=== PATIENT | female | born 1995 | race African-American/Black ===

== ENCOUNTER 2020-02-11 16:31 | Emergency (ER) | payer SELFPAY ==
[~2020-02-11] VITALS: Ht 167.6 cm; Wt 71.0 kg
[2020-02-11 16:31] VITALS: BP 113/88
[2020-02-11] MEDS ORDERED: ACETAMINOPHEN 325 MG TABLET PO ONE (17:05)
--- NOTE | 2020-02-11 17:07 | PHYS DOC ---
Past History Past Medical History: Asthma (MANUEL ESPANA ) Past Surgical History: Oophorectomy, Other (MANUEL ESPANA ) Smoking: Cigarettes Alcohol Use: Occasionally Drug Use: Marijuana (MANUEL ESPANA ) General Adult EDM: Chief Complaint: ABDOMINAL PAIN IN HPI: HPI: 24-year-old female with FDLMP early November, who presents for evaluation of suprapubic and pelvic discomfort, intermittent over the last 2 weeks or so. No vaginal bleeding or discharge. No dysuria or hematuria. No nausea or vomiting. Prior right-sided oophorectomy for a reportedly large cyst. Has not yet established care. (MANUEL ESPANA ) Review of Systems: Review of Systems: General: No fevers, chills. Eyes: No blurred vision, diplopia. ENT: No nasal congestion, sore throat. CV: No chest pain, edema. Resp: No shortness of breath, cough. GI: No nausea, vomiting. Reports pelvic pain. : No dysuria, hematuria. Neuro: No headache, dizziness, weakness. MSK: No myalgia, arthralgia, back pain. Skin: No acute rash, lesion. (FARHAD) Heart Score: Risk Factors: Risk Factors: DM, Current or recent (<one month) smoker, HTN, HLP, family history of CAD, obesity. Risk Scores: Score 0 - 3: 2.5% MACE over next 6 weeks - Discharge Home Score 4 - 6: 20.3% MACE over next 6 weeks - Admit for Clinical Observation Score 7 - 10: 72.7% MACE over next 6 weeks - Early Invasive Strategies (MANUEL ESPANA ) Current Medications: Current Meds: Current Medications Medications (Trade) Dose Ordered Sig/Frandy Start Time Stop Time Status Last Admin Dose Admin Acetaminophen (Tylenol) 650 mg 1X ONCE 02/11/20 17:00 02/11/20 17:01 UNV (FARHAD) Allergies: Allergies: Allergies Coded Allergies Type Severity Reaction Last Updated Verified No Known Drug Allergies 12/07/13 No (MANUEL ESPANA H DO) Physical Exam: PE: Gen: NAD. Head: NC/AT Eyes: No scleral icterus. No conjunctival injection. ENT: MMM. Posterior OP clear. Neck: Supple. NT. CV: RRR. Peripheral pulses intact. Resp: CTAB. Abd: Soft. NT. ND. No flank tenderness. Gravid abdomen. MSK: No peripheral cyanosis. No edema. Neuro: Awake and alert. Skin: Warm. Dry. Psych: Appropriate mood & affect. (LE,MANUEL H DO) Current Patient Data: Labs: Laboratory Tests Test 02/11/20 17:28 White Blood Count 6.9 x10^3/uL Red Blood Count 3.94 x10^6/uL Hemoglobin 12.6 g/dL Hematocrit 37.3 % Mean Corpuscular Volume 95 fL Mean Corpuscular Hemoglobin 32 pg Mean Corpuscular Hemoglobin Concent 34 g/dL Red Cell Distribution Width 14.8 % Platelet Count 174 x10^3/uL Neutrophils (%) (Auto) 54 % Lymphocytes (%) (Auto) 33 % Monocytes (%) (Auto) 10 % Eosinophils (%) (Auto) 3 % Basophils (%) (Auto) 1 % Neutrophils # (Auto) 3.8 x10^3uL Lymphocytes # (Auto) 2.3 x10^3/uL Monocytes # (Auto) 0.7 x10^3/uL Eosinophils # (Auto) 0.2 x10^3/uL Basophils # (Auto) 0.0 x10^3/uL Urine Collection Type Unknown Urine Color Yellow Urine Clarity Hazy Urine pH 7.0 Urine Specific Stevenson 1.020 Urine Protein Neg Urine Glucose (UA) Neg mg/dL Urine Ketones (Stick) Trace mg/dL Urine Blood Neg Urine Nitrite Neg Urine Bilirubin Neg Urine Urobilinogen Dipstick 0.2 mg/dL Urine Leukocyte Esterase Neg Urine RBC 1-2 /HPF Urine WBC 1-4 /HPF Urine Squamous Epithelial Cells Many /LPF Urine Amorphous Sediment Present /HPF Urine Bacteria Few /HPF Maternal Serum HCG Beta Subunit 476298 mIU/mL Sodium Level 135 mmol/L Potassium Level 3.5 mmol/L Chloride Level 101 mmol/L Carbon Dioxide Level 26 mmol/L Anion Gap 8 Blood Urea Nitrogen 14 mg/dL Creatinine 0.9 mg/dL Estimated GFR (Cockcroft-Gault) 93.9 BUN/Creatinine Ratio 16 Glucose Level 83 mg/dL Calcium Level 8.9 mg/dL Magnesium Level 1.9 mg/dL Total Bilirubin < 0.1 mg/dL Aspartate Amino Transf (AST/SGOT) 13 U/L Alanine Aminotransferase (ALT/SGPT) 15 U/L Alkaline Phosphatase 47 U/L Total Protein 7.2 g/dL Albumin 3.0 g/dL Albumin/Globulin Ratio 0.7 Lipase 103 U/L Current Medications Medications (Trade) Dose Ordered Sig/Frandy Route PRN Reason Start Time Stop Time Status Last Admin Dose Admin Acetaminophen (Tylenol) 650 mg 1X ONCE PO 02/11/20 17:05 02/11/20 17:06 DC 02/11/20 17:05 (BRADFORD TSE MD) EKG: EKG: [] (MANUEL ESPANA DO) Radiology/Procedures: Radiology/Procedures: [] (MANUEL ESPANA DO) Radiology/Procedures: [place] [address] IMAGING REPORT Signed PATIENT: OLEG MARIEE ACCOUNT: [id number] : 1995 LOCATION: ER AGE: 24 SEX: F EXAM STATUS: REG ER ORD. PHYSICIAN: MANUEL ESPANA DO REASON: pelvic pain, +home , FDLMP early November PROCEDURE: OB <14 WKS Exam: Ultrasound OB less than 14 weeks Indication: Pelvic pain Technique: Real-time grayscale and color Doppler images of the pelvis were obtained by the department supervisor gas meter repair. Comparisons: None FINDINGS: Uterus measures 10 x 7 x 6 cm. Within the endometrium there is a gestational sac with yolk sac and pole which measures 1.7 cm corresponding to 8 weeks 1 day gestation. heart rate measured at 171 bpm Right ovary measures 2.5 x 1.3 x 1.5 cm. Left ovary is not visualized, obscured by overlying bowel gas. No free fluid. IMPRESSION: 1. Single live uterine gestation of 8 weeks 1 day gestation by current ultrasound. Correlate with LMP. 2. Dedicated survey is recommended at 18-20 weeks gestation. Electronically signed by: Lavern Nieves MD (02/11/2020 6:33 PM) [id number] DICTATED AND SIGNED BY: LAVERN NIEVES MD DATE: 02/11/20 1833 CC: MANUEL ESPANA DO; PCP,NO ~ (BRADFORD TSE MD) Course & Med Decision Making: Course & Med Decision Making Pertinent Labs and Imaging studies reviewed. (See chart for details) In summary, 24F with FDLMP early Feb, p/w pelvic/midline lower abd pain. No other GI/ Sx. NO VAGINAL BLEEDING OR DISCHARGE. No PNC thus far. Benign exam. Basic labs, HCG quant and TVUS ordered. Patient informed that US is not currently in-house but will be able to perform the study tonight, and she is comfortable waiting. Signed out to Dr. Tse pending remainder of labs including quant hcg and TVUS. (MANUEL ESPANA DO) Course & Med Decision Making Addendum by Dr. Bradford Tse at 1846: I received care of patient from Dr. Espana at 1800. Patient's lab work was reviewed. Quantitative hCG within expected range. The patient's ultrasound imaging shows a live intrauterine at 8 weeks 1 day. Patient is in no acute distress at this time. The patient will be referred to Dr. Clarke for care. Advised follow-up in 1 week for reevaluation. Recommended return to the emergency department for any worsening symptoms. Patient voiced understanding and agreement with treatment plan. (BRADFORD TSE MD) Dragon Disclaimer: Dragon Disclaimer: This electronic medical record was generated, in whole or in part, using a voice recognition dictation system. (MANUEL ESPANA DO) Departure Departure: Impression: Primary Impression: Pelvic pain during Additional Impression: Intrauterine Disposition: HOME, SELF-CARE Condition: STABLE Referrals: PCP,NO (PCP) Hitesh Clarke Jr, MD Patient Instructions: Abdominal Pain During Additional Instructions: Follow-up with Dr. Clarke in 1 week for reevaluation. Return to the emergency department for any worsening symptoms. MANUEL ESPANA DO Feb 11, 2020 17:07 BRADFORD TSE MD Feb 11, 2020 18:52
[2020-02-11 17:40] LABS: BASO % 1 % (0-3); EOS # 0.2 x10^3/uL (0.0-0.7); EOS % 3 % (0-3); HEMATOCRIT 37.3 % (36.0-47.0); HEMOGLOBIN 12.6 g/dL (12.0-15.5); LYMPH # 2.3 x10^3/uL (1.0-4.8); LYMPH % 33 % (24-48); MEAN CORPUSCULAR HEMOGLOBIN 32 pg (25-35); MEAN CORPUSCULAR HGB CONC 34 g/dL (31-37); MEAN CORPUSCULAR VOLUME 95 fL (79-100); MONO # 0.7 x10^3/uL (0.0-1.1); MONO % 10 % (0-9); NEUT # 3.8 x10^3uL (1.8-7.7); NEUT % 54 % (31-73); PLATELET COUNT 174 x10^3/uL (140-400); RED BLOOD COUNT 3.94 x10^6/uL (3.50-5.40); RED CELL DISTRIBUTION WIDTH 14.8 % (11.5-14.5); WHITE BLOOD COUNT 6.9 x10^3/uL (4.0-11.0)
[2020-02-11 17:46] LABS: ANION GAP 8 (6-14); BLOOD UREA NITROGEN 14 mg/dL (7-20); BUN/CREATININE RATIO 16 (6-20); CALCIUM 8.9 mg/dL (8.5-10.1); CARBON DIOXIDE 26 mmol/L (21-32); CHLORIDE 101 mmol/L (98-107); CREATININE 0.9 mg/dL (0.6-1.0); GFR 93.9; GLUCOSE 83 mg/dL (70-99); POTASSIUM 3.5 mmol/L (3.5-5.1); SODIUM 135 mmol/L (136-145)
[2020-02-11 17:48] LABS: AMORPHOUS SEDIMENT,UR PRESENT /HPF; BACTERIA,URINE FEW /HPF (0-FEW); BILIRUBIN,URINE NEG (NEG); CLARITY,URINE HAZY; COLOR,URINE YELLOW; GLUCOSE,URINE NEG (NEG); NITRITE,URINE NEG (NEG); SQUAMOUS EPITHELIAL CELL,UR MANY /LPF; UROBILINOGEN,URINE 0.2 mg/dL (0.2 mg/dL)
[2020-02-11 17:52] LABS: ALBUMIN/GLOBULIN RATIO 0.7 (1.0-1.7); ALK PHOS 47 U/L (46-116); ALT (SGPT) 15 U/L (14-59); AST (SGOT) 13 U/L (15-37); LIPASE 103 U/L (73-393); MAGNESIUM 1.9 mg/dL (1.8-2.4); TOTAL PROTEIN 7.2 g/dL (6.4-8.2)
[2020-02-11 18:07] LABS: TOTAL BILIRUBIN < 0.1 mg/dL (0.2-1.0)
--- NOTE | 2020-02-11 18:37 | RAD ---
Exam: Ultrasound OB less than 14 weeks Indication: Pelvic pain Technique: Real-time grayscale and color Doppler images of the pelvis were obtained by the department geology technician. Comparisons: None FINDINGS: Uterus measures 10 x 7 x 6 cm. Within the endometrium there is a gestational sac with yolk sac and pole which measures 1.7 cm corresponding to 8 weeks 1 day gestation. heart rate measured at 171 bpm Right ovary measures 2.5 x 1.3 x 1.5 cm. Left ovary is not visualized, obscured by overlying bowel gas. No free fluid. IMPRESSION: 1. Single live uterine gestation of 8 weeks 1 day gestation by current ultrasound. Correlate with LMP. 2. Dedicated survey is recommended at 18-20 weeks gestation. Electronically signed by: Lavern Mccray MD (02/11/2020 6:33 PM) [id number]
== END 2020-02-11 18:42 | disposition left against medical advice (07) ==
LOC: ER 16:31
DX: O26.891 Other specified pregnancy related conditions, first trimester (principal); R10.2 Pelvic and perineal pain; O99.511 Diseases of the respiratory system complicating pregnancy, first trimester; J45.909 Unspecified asthma, uncomplicated; O99.331 Smoking (tobacco) complicating pregnancy, first trimester; Z3A.08 8 weeks gestation of pregnancy
CPT/HCPCS: 36415; 76801; 80053; 81001; 83690; 83735; 84702; 85025; 99284-25

== ENCOUNTER 2020-07-20 10:08 | Emergency (ER) | payer MEDICAID ==
[~2020-07-20] VITALS: Ht 167.6 cm; Wt 77.3 kg
[2020-07-20 10:25] VITALS: BP 106/72
[2020-07-20 10:38] LABS: BASO % 0 % (0-3); EOS # 0.1 x10^3/uL (0.0-0.7); EOS % 1 % (0-3); HEMATOCRIT 31.4 % (36.0-47.0); HEMOGLOBIN 10.4 g/dL (12.0-15.5); LYMPH # 1.7 x10^3/uL (1.0-4.8); LYMPH % 36 % (24-48); MEAN CORPUSCULAR HEMOGLOBIN 30 pg (25-35); MEAN CORPUSCULAR HGB CONC 33 g/dL (31-37); MEAN CORPUSCULAR VOLUME 91 fL (79-100); MONO # 0.5 x10^3/uL (0.0-1.1); MONO % 10 % (0-9); NEUT # 2.5 x10^3uL (1.8-7.7); NEUT % 52 % (31-73); PLATELET COUNT 158 x10^3/uL (140-400); RED BLOOD COUNT 3.46 x10^6/uL (3.50-5.40); RED CELL DISTRIBUTION WIDTH 13.6 % (11.5-14.5); WHITE BLOOD COUNT 4.8 x10^3/uL (4.0-11.0)
[2020-07-20 10:47] LABS: CALCIUM 8.5 mg/dL (8.5-10.1); CREATININE 0.7 mg/dL (0.6-1.0); GFR 124.4; POTASSIUM 3.3 mmol/L (3.5-5.1)
[2020-07-20 11:03] LABS: BILIRUBIN,URINE NEG (NEG); CLARITY,URINE CLEAR; COLOR,URINE YELLOW; GLUCOSE,URINE NEG (NEG); NITRITE,URINE NEG (NEG)
[2020-07-20 11:04] LABS: BACTERIA,URINE MOD /HPF (0-FEW); SQUAMOUS EPITHELIAL CELL,UR MANY /LPF
--- NOTE | 2020-07-20 11:45 | RAD ---
OB LIMITED History: Abdominal and pelvic pain and cramping, Comparison: February 11, 2020 Findings: Multiple transabdominal sonographic images of the uterus are submitted. There is single intrauterine fetus in cephalic presentation. There is demonstrable cardiac activity 137 bpm. Amniotic fluid volume is subjectively within normal limits, also estimated ISAÍAS within normal limits about 13 cm. Cervix measured 4.4 cm in length. Maternal ovaries are not seen, no demonstrable abnormality of the maternal adnexal regions on either side. There is anterior placenta. Biometry data are as follows: Biparietal diameter 7.94 cm corresponds with 31 weeks 6 days, 37th percentile Head circumference 29.76 cm corresponds with 33 weeks 0 days, 37th percentile Abdominal circumference 26.83 cm corresponds with 31 weeks 0 days, 19 percentile Femur length 5.85 cm corresponds with 30 weeks 4 days, 8th percentile HC/AC ratio1.11 within normal limits Adjusted ultrasound age 31 weeks 4 days corresponds with 09/17/2020 LMP age 32 weeks 0 days corresponds with 09/14/2020 Estimated weight 1697 grams+/- 251grams Impression: 1. There is single viable intrauterine fetus in cephalic presentation. Adjusted ultrasound age is 31 weeks 4 days with estimated delivery date by ultrasound 09/17/2020 based on today's exam. Electronically signed by: Demetrio Jennings MD (07/20/2020 11:42 AM) [id number]
--- NOTE | 2020-07-20 12:09 | PHYS DOC ---
Past History Past Medical History: No Pertinent History Past Surgical History: Oophorectomy Smoking: Cigarettes Alcohol Use: None Drug Use: Marijuana General Adult EDM: Chief Complaint: ABDOMINAL PAIN IN HPI: HPI: 25 yo female @ 32 wks, presents to the ED with complaints of lower abdominal cramping that started earlier this morning and lasted for a few hours, worsened when lying flat. States she was concerned she was having early contractions. Currently has no abdominal cramps at this time. Follows with Dr. Watson, MILKING WORKER at [facility]. No complications with this . Review of Systems: Review of Systems: Constitutional: Denies fever or chills Eyes: Denies change in visual acuity HENT: Denies nasal congestion or sore throat Respiratory: Denies cough or shortness of breath Cardiovascular: Denies chest pain or edema GI: Denies vaginal bleeding or abnormal itching odor or discharge, nausea, vomiting, bloody stools or diarrhea : Denies dysuria, hematuria Musculoskeletal: Denies back pain or joint pain Integument: Denies rash or bruising Neurologic: Denies headache, focal weakness or sensory changes Endocrine: Denies polyuria or polydipsia Lymphatic: Denies swollen glands Psychiatric: Denies depression or anxiety Heart Score: Risk Factors: Risk Factors: DM, Current or recent (<one month) smoker, HTN, HLP, family history of CAD, obesity. Risk Scores: Score 0 - 3: 2.5% MACE over next 6 weeks - Discharge Home Score 4 - 6: 20.3% MACE over next 6 weeks - Admit for Clinical Observation Score 7 - 10: 72.7% MACE over next 6 weeks - Early Invasive Strategies Allergies: Allergies: Allergies Coded Allergies Type Severity Reaction Last Updated Verified No Known Drug Allergies 12/07/13 No Physical Exam: PE: Constitutional: Well developed, well nourished, no acute distress, non-toxic appearance. [] HENT: Normocephalic, atraumatic, Eyes: EOMI, conjunctiva normal, no discharge. [] Neck: Normal range of motion, supple, Cardiovascular:Heart rate regular rhythm, no murmur [] Lungs & Thorax: Bilateral breath sounds clear to auscultation [] Abdomen: Bowel sounds normal, soft, gravid well above umbilicus, no tenderness, no masses, no pulsatile masses. [] Skin: Warm, dry, no erythema, no rash. [] Back: No tenderness, no CVA tenderness. [] Extremities: No tenderness, no cyanosis, no clubbing, ROM intact, no edema. [] Neurologic: Alert and oriented X 3, normal motor function, normal sensory function, no focal deficits noted. [] Psychologic: Affect normal, judgement normal, mood normal. [] Current Patient Data: Labs: Laboratory Tests Test 07/20/20 10:20 07/20/20 10:23 White Blood Count 4.8 x10^3/uL (4.0-11.0) Red Blood Count 3.46 x10^6/uL (3.50-5.40) L Hemoglobin 10.4 g/dL (12.0-15.5) L Hematocrit 31.4 % (36.0-47.0) L Mean Corpuscular Volume 91 fL (79-100) Mean Corpuscular Hemoglobin 30 pg (25-35) Mean Corpuscular Hemoglobin Concent 33 g/dL (31-37) Red Cell Distribution Width 13.6 % (11.5-14.5) Platelet Count 158 x10^3/uL (140-400) Neutrophils (%) (Auto) 52 % (31-73) Lymphocytes (%) (Auto) 36 % (24-48) Monocytes (%) (Auto) 10 % (0-9) H Eosinophils (%) (Auto) 1 % (0-3) Basophils (%) (Auto) 0 % (0-3) Neutrophils # (Auto) 2.5 x10^3uL (1.8-7.7) Lymphocytes # (Auto) 1.7 x10^3/uL (1.0-4.8) Monocytes # (Auto) 0.5 x10^3/uL (0.0-1.1) Eosinophils # (Auto) 0.1 x10^3/uL (0.0-0.7) Basophils # (Auto) 0.0 x10^3/uL (0.0-0.2) Sodium Level 136 mmol/L (136-145) Potassium Level 3.3 mmol/L (3.5-5.1) L Chloride Level 104 mmol/L (98-107) Carbon Dioxide Level 24 mmol/L (21-32) Anion Gap 8 (6-14) Blood Urea Nitrogen 6 mg/dL (7-20) L Creatinine 0.7 mg/dL (0.6-1.0) Estimated GFR (Cockcroft-Gault) 124.4 Glucose Level 78 mg/dL (70-99) Calcium Level 8.5 mg/dL (8.5-10.1) Urine Collection Type Unknown Urine Color Yellow Urine Clarity Clear Urine pH 7.0 Urine Specific [place] 1.020 Urine Protein Trace (NEG-TRACE) Urine Glucose (UA) Neg mg/dL (NEG) Urine Ketones (Stick) Neg mg/dL (NEG) Urine Blood Neg (NEG) Urine Nitrite Neg (NEG) Urine Bilirubin Neg (NEG) Urine Urobilinogen Dipstick 1.0 mg/dL (0.2 mg/dL) Urine Leukocyte Esterase Neg (NEG) Urine RBC 3-5 /HPF (0-2) Urine WBC 5-10 /HPF (0-4) Urine Squamous Epithelial Cells Many /LPF Urine Bacteria Mod /HPF (0-FEW) Urine Mucus Mod /LPF Vital Signs: Vital Signs Date Time Temp Pulse Resp B/P (MAP) Pulse Ox O2 Delivery O2 Flow Rate FiO2 07/20/20 10:25 98.0 86 18 106/72 (83) 100 EKG: EKG: [] Radiology/Procedures: Radiology/Procedures: IMAGING REPORT Signed PATIENT: OLEG MARIEE ACCOUNT: [id number] : 1995 LOCATION: ER AGE: 25 SEX: F EXAM STATUS: REG ER ORD. PHYSICIAN: NADIA ESCALANTE DO REASON: ABD AND PELVIC PAIN AND CRAMPING, 31 WEEKS PROCEDURE: OB LIMITED OB LIMITED History: Abdominal and pelvic pain and cramping, Comparison: February 11, 2020 Findings: Multiple transabdominal sonographic images of the uterus are submitted. There is single intrauterine fetus in cephalic presentation. There is demonstrable cardiac activity 137 bpm. Amniotic fluid volume is subjectively within normal limits, also estimated ISAÍAS within normal limits about 13 cm. Cervix measured 4.4 cm in length. Maternal ovaries are not seen, no demonstrable abnormality of the maternal adnexal regions on either side. There is anterior placenta. Biometry data are as follows: Biparietal diameter 7.94 cm corresponds with 31 weeks 6 days, 37th percentile Head circumference 29.76 cm corresponds with 33 weeks 0 days, 37th percentile Abdominal circumference 26.83 cm corresponds with 31 weeks 0 days, 19 percentile Femur length 5.85 cm corresponds with 30 weeks 4 days, 8th percentile HC/AC ratio1.11 within normal limits Adjusted ultrasound age 31 weeks 4 days corresponds with 09/17/2020 LMP age 32 weeks 0 days corresponds with 09/14/2020 Estimated weight 1697 grams+/- 251grams Impression: 1. There is single viable intrauterine fetus in cephalic presentation. Adjusted ultrasound age is 31 weeks 4 days with estimated delivery date by ultrasound 09/17/2020 based on today's exam. Electronically signed by: Becky Jennings MD (07/20/2020 11:42 AM) [id number] DICTATED AND SIGNED BY: BECKY JENNINGS MD DATE: 07/20/20 1142 CC: PCP,NO; NADIA ESCALANTE DO ~ Course & Med Decision Making: Course & Med Decision Making Pertinent Labs and Imaging studies reviewed. (See chart for details) Concern for abdominal cramping in that has resolved prior to ED arrival. Abdominal ultrasound showed ntrauterine , fhr 137. Labs with normocytic anemia, worsened by January, no active blood loss. D/w Dr. Lazaro - reviewed labs/imaging, requests to not treat for uti but to send a urine culture and treat if positive. To have her followup as usual, suspect this is round ligament pain. Strict ed return precautions for recurrent abdominal pain or back pain, vaginal bleeding or abnormal vaginal discharge. Encouraged urgent outpatient follow-up with PMD and MILKING WORKER. Life-threatening processes were considered but are low suspicion at this time, given history and physical exam. Pt was educated on all prescription medications and adverse effects. All patient's questions were answered and pt was stable at time of discharge. Differential includes aortic dissection, aortic aneurysm, acute coronary syndrome, surgical abdomen (appendicitis, cholecystitis, ischemic bowel, strangulated hernia, etc), bowel obstruction or volvulus, bladder outlet obstruction, gastrointestinal bleeding, inflammatory bowel disease, peptic ulcer disease, sepsis, diverticular disease, ureterolithiasis, nephrolithiasis, ovarian or testicular torsion, ectopic , vaginal hemorrhage of infection I spoken with the patient and her caregivers. I explained the patient's condition, diagnoses and treatment plan based on the information available to me at this time. I have answered the patient and her caregiver's questions and addressed any concerns. The patient and her caregivers have a good understanding of patient's diagnosis, condition and treatment plan as can be expected at this point. Vital signs have been stable. Patient's condition is stable and appropriate for discharge from the emergency department. Patient will pursue further outpatient evaluation with primary care physician or other designated or consulting physician as outlined in the discharge instructions. The patient and/or caregivers are agreeable to this plan of care and follow-up instructions have been explained in detail. The patient and/or caregivers have received these instructions in written form and have expressed an understanding of the discharge instructions. The patient and/or caregivers are aware that any significant change of condition or worsening of symptoms should prompt immediate return to this or the closest emergency department or call to 911. Antonia Disclaimer: Antonia Disclaimer: This electronic medical record was generated, in whole or in part, using a voice recognition dictation system. Departure Departure: Impression: Primary Impression: Abdominal pain during in third trimester Disposition: 01 HOME/RESIDENCE PRIOR TO ADM Condition: STABLE Referrals: PCP,BETO (PCP) Patient Instructions: Abdominal Pain During Additional Instructions: Have urinalysis repeated in 1 week. Follow-up with Dr. Lazaro as scheduled. Please return to the ED immediately if abdominal pain, vaginal bleeding or abnormal vaginal discharge should occur. EMERGENCY DEPARTMENT GENERAL DISCHARGE INSTRUCTIONS Thank you for coming to [facility] Emergency Department (ED) today and trusting us with you care. We trust that you had a positivie experience in our Emergency Department. If you wish to speak to the department management, you may call the sirector at [phone]. YOUR FOLLOW UP INSTRUCTIONS ARE FOLLOWS: 1. Do you have a private Doctor? If you do not have a private doctir, please ask for a resource list of physicians or clinics that may be able to assist you with follow up care. 2. The Emergency Physicain has interpreted your x-rays. The X-Ray specialist will also review them. If there is a change in the findingd, you will be notified in 48 hours when at all possible. 3. A lab test or culture has been done, your results will be reviewed and you will be notified if you need a change in treatment. ADDITIONAL INSTRUCTIONS AND INFORMATION: 1. Your care today has been supervised by a physician who is specially trained in emergency care. Many problems require more than one evaluation for a complete diagnosis and treatment. We recommend that you schedule your follow up appointment as recommended to ensure complete treatment of you illness or injury. If you are unable to obtain follow up care and continue to have a problem, or if your consition worsens, we recommend that you return to the ED. 2. We are not able to safelymdetermine your condition over the phone nor are we able to give sound medical advice over the phone. For these safety reasons, if you call for medical advice we will ask you to come to the ED for further evaluation. 3. If you have any questions regarding these discharge instructions please call the ED at [phone]. SAFETY INFORMATION: In the interest of safety, wellness, and injury prevention; we encourage you to wear your sealbelt, if you smoke; quite smoking, and we encourage family to use a protective helmet for bicycling and other sporting events that present an increased risk for head injusry. IF YOUR SYMPTOMS WORSEN OR NEW SYMPTOMS DEVELOP, OR YOU HAVE CONCERNS ABOUT YOUR CONDITION; OR IF YOUR CONDITION WORSENS WHILE YOU ARE WAITING FOR YOUR FOLLOW UP APPOINTMENT; EITHER CONTACT YOUR PRIMARY CARE DOCTOR, THE PHYSICIAN WHOSE NAME AND NUMBER YOU WERE GIVEN, OR RETURN TO THE ED IMMEDIATELY. Justification of Admission: Justification of Admission: Justification of Admission Dx: N/A NADIA ESCALANTE DO Jul 20, 2020 12:09
== END 2020-07-20 12:30 | disposition home or self-care (01) ==
LOC: ER 10:08
DX: O26.893 Other specified pregnancy related conditions, third trimester (principal); R10.33 Periumbilical pain; O99.333 Smoking (tobacco) complicating pregnancy, third trimester; Z3A.31 31 weeks gestation of pregnancy
CPT/HCPCS: 36415; 76815; 80048; 81001; 85025; 87086; 99284

== ENCOUNTER 2020-11-11 04:55 | Emergency (ER) | payer MEDICAID ==
[~2020-11-11] VITALS: Ht 167.6 cm; Wt 72.0 kg
--- NOTE | 2020-11-11 04:57 | PHYS DOC ---
Past History Past Medical History: No Pertinent History Past Surgical History: Oophorectomy Smoking: Cigarettes Alcohol Use: None Drug Use: Marijuana General Adult HPI: HPI: ".. I got a sore throat.. and my neck hurt on this Lt. side.. and even my ear hurts... " Patient is a 25 year old female who presents with above hx and complaints with t hroat, left ear and facial pain. . Pain is been present for last couple days. Patient not currently breast-feeding. No recent travel. No sick ill contacts. Left ear canal is grossly clear with no TM injection. Does have adenopathy at the angle of the mandible. There is mild injection of pharynx. Does have dental caries. Patient does smoke. Patient did get flu vaccination. Patient denies any history immunosuppression. No recent travel outside the [place] area. No significant ill contacts. Review of Systems: Review of Systems: Constitutional: Subjective history of fever Eyes: Denies change in visual acuity HENT: Complains of sore throat . Complains of adenopathy angle of mandible left. Respiratory: Denies cough or shortness of breath Cardiovascular: Denies chest pain or edema GI: Denies abdominal pain, nausea, vomiting, bloody stools or diarrhea : Denies dysuria Musculoskeletal: Denies back pain or joint pain Integument: Denies rash Neurologic: Denies headache, focal weakness or sensory changes Endocrine: Denies polyuria or polydipsia Lymphatic: Denies swollen glands Psychiatric: Denies depression or anxiety Family History: Family History: Noncontributory to presentation Current Medications: Current Meds: See nursing for home meds Allergies: Allergies: Allergies Coded Allergies Type Severity Reaction Last Updated Verified No Known Drug Allergies 12/07/13 No Physical Exam: PE: Constitutional: Well developed, well nourished, moderate acute distress, non- toxic appearance. [] HENT: Normocephalic, atraumatic, bilateral external ears normal, TMs clear, oropharynx moist, injected pharynx, no oral exudates, nose normal. [] Some dental caries Eyes: PERRLA, EOMI, conjunctiva normal, no discharge. [] Neck: Normal range of motion, no tenderness, supple, no stridor. [Adenopathy anterior cervical chain Lt. Cardiovascular:Heart rate regular rhythm, no murmur [] Lungs & Thorax: Bilateral breath sounds equal apex with scattered wheezes auscultation [] Abdomen: Bowel sounds normal, soft, no tenderness, no masses, no pulsatile masses. [] Old surgical scar. Skin: Warm, dry, no erythema, no rash. [] Back: No tenderness, no CVA tenderness. [] Extremities: No tenderness, no cyanosis, no clubbing, ROM intact, no edema. [] Neurologic: Alert and oriented X 3, normal motor function, normal sensory function, no focal deficits noted. [] Psychologic: Affect anxious, judgement normal, mood normal. [] EKG: EKG: [] Radiology/Procedures: Radiology/Procedures: [] Heart Score: Risk Factors: Risk Factors: DM, Current or recent (<one month) smoker, HTN, HLP, family history of CAD, obesity. Risk Scores: Score 0 - 3: 2.5% MACE over next 6 weeks - Discharge Home Score 4 - 6: 20.3% MACE over next 6 weeks - Admit for Clinical Observation Score 7 - 10: 72.7% MACE over next 6 weeks - Early Invasive Strategies Course & Med Decision Making: Course & Med Decision Making Pertinent Labs and Imaging studies reviewed. (See chart for details) Gargle with Listerine 4 times a day. Take Tylenol and ibuprofen for pain. May take Benadryl 50 mg at 4 times a day for congestion and drainage. Follow-up primary care. Return if any concerns. Negative strept screen. Impression: 1. Pharyngitis [] Antonia Disclaimer: Antonia Disclaimer: This electronic medical record was generated, in whole or in part, using a voice recognition dictation system. Departure Departure: Referrals: PCP,NO (PCP) Antonai Disclaimer This chart was dictated in whole or in part using Voice Recognition software in a busy, high-work load, and often noisy Emergency Department environment. It may contain unintended and wholly unrecognized errors or omissions. KYM HARRISON MD Nov 11, 2020 04:57
[2020-11-11] MEDS ORDERED: ACETAMINOPHEN 500 MG TABLET PO ONE (05:30)
[2020-11-11] MEDS ORDERED: diphenhydrAMINE HCL 25 MG CAPSULE PO ONE (05:30)
[2020-11-11] MEDS ORDERED: predniSONE 10 MG TABLET PO ONE (05:30)
[2020-11-11 05:48] VITALS: BP 118/84
== END 2020-11-11 05:48 | disposition home or self-care (01) ==
LOC: ER 04:55
DX: J02.9 Acute pharyngitis, unspecified (principal); K02.9 Dental caries, unspecified; F17.210 Nicotine dependence, cigarettes, uncomplicated; F12.10 Cannabis abuse, uncomplicated
CPT/HCPCS: 87070; 87880; 99284; J7512; Q0163

== ENCOUNTER 2020-11-13 18:34 | Emergency (ER) | payer MEDICAID ==
[~2020-11-13] VITALS: Ht 167.6 cm; Wt 68.6 kg
[2020-11-13] MEDS ORDERED: IOHEXOL 300 MG/ML 75 ML VIAL. IV ONE (19:15)
[2020-11-13] MEDS ORDERED: DEXAMETHASONE SOD PHOS 10 MG/ML VIAL. PO ONE (19:15)
[2020-11-13 19:18] LABS: BASO % 0 % (0-3); EOS % 0 % (0-3); HEMATOCRIT 34.5 % (36.0-47.0); HEMOGLOBIN 11.2 g/dL (12.0-15.5); LYMPH # 1.6 x10^3/uL (1.0-4.8); LYMPH % 14 % (24-48); MEAN CORPUSCULAR HEMOGLOBIN 28 pg (25-35); MEAN CORPUSCULAR HGB CONC 33 g/dL (31-37); MEAN CORPUSCULAR VOLUME 86 fL (79-100); MONO # 0.8 x10^3/uL (0.0-1.1); MONO % 7 % (0-9); NEUT # 8.7 x10^3uL (1.8-7.7); NEUT % 78 % (31-73); PLATELET COUNT 205 x10^3/uL (140-400); RED BLOOD COUNT 4.03 x10^6/uL (3.50-5.40); RED CELL DISTRIBUTION WIDTH 16.9 % (11.5-14.5); WHITE BLOOD COUNT 11.2 x10^3/uL (4.0-11.0)
[2020-11-13 19:28] LABS: CALCIUM 8.8 mg/dL (8.5-10.1); CREATININE 1.1 mg/dL (0.6-1.0); GFR 73.8
[2020-11-13 19:37] LABS: MONONUCLEOSIS PATIENT NEGATIVE (NEGATIVE)
--- NOTE | 2020-11-13 20:10 | RAD ---
CT NECK SOFT TISSUE WITH IV CONTRAST History:Reason: Pain. R/o peritonsillar abscess / Spl. Instructions: / History: Technique: CT imaging was performed of the neck soft tissues with intravenous contrast. Coronal and s agittal reconstructions were performed. Exposure: One or more of the following individualized dose reduction techniques were utilized for thi s examination: 1. Automated exposure control 2. Adjustment of the mA and/or kV according to patient size 3. Use of iterative reconstruction technique. Comparison: None Findings: [place] tonsil enlargement. Lobulated fluid collection with peripheral enhancement in the left perit onsillar region measures 1.8 cm anterior posterior by 1.7 cm transverse by 2.5 cm craniocaudal. There is left parapharyngeal mucosal edema extending into the laryngeal structures on the left. Normal appearance of the bilateral submandibular and parotid glands. Unremarkable thyroid gland. Mildly prominent left greater than right deep cervical chain lymph nodes, likely reactive. Imaged lung apices are unremarkable. Imaged paranasal sinuses and mastoid air cells are clear. Small bilateral maxillary sinus mucous rete ntion cyst. Mastoid air cells are clear. Impression: 1. Tonsillitis with left peritonsillar abscess and left parapharyngeal mucosal edema. Electronically signed by: Moises Allison DO (11/13/2020 8:08 PM) [facility]
--- NOTE | 2020-11-13 20:22 | PHYS DOC ---
Past History Past Medical History: No Pertinent History (JAY ALBERT APRN) Past Surgical History: Oophorectomy (JAY ALBERT APRN) Smoking: Cigarettes Alcohol Use: None Drug Use: Marijuana (JAY ALBERT APRN) General Adult EDM: Chief Complaint: SORE THROAT HPI: HPI: Patient is a 25-year-old AA female who presents emergency department with complaints of increased sore throat and left ear pain. Patient states she was seen here 2 days ago was given a steroid and discharged home. Patient states that her symptoms have become more severe. She denies any fever, nausea, vomiting, abdominal pain, rash, body aches, fatigue, shortness of breath, or wheezing. Patient states that she feels like her voice sounds different now. She currently rates the discomfort a 10 out of 10 on the pain scale, she denies any alleviating factors. (JAY ALBERT APRN) Review of Systems: Review of Systems: Complete ROS is negative unless otherwise noted in HPI. (JAY ALBERT APRN) Current Medications: Current Meds: Current Medications Medications (Trade) Dose Ordered Sig/Frandy Start Time Stop Time Status Last Admin Dose Admin Dexamethasone Sodium Phosphate (Decadron) 10 mg 1X ONCE 11/13/20 19:15 11/13/20 19:16 DC 11/13/20 19:25 10 MG Iohexol (Omnipaque 300 Mg/ml) 75 ml 1X ONCE 11/13/20 19:15 11/13/20 19:16 DC 11/13/20 19:42 75 ML (JAY ALBERT APRN) Allergies: Allergies: Allergies Coded Allergies Type Severity Reaction Last Updated Verified No Known Drug Allergies 11/13/20 No (JAY ALBERT APRN) Physical Exam: PE: See Above Constitutional: Well developed, well nourished, no acute distress, non-toxic appearance. [] HENT: Normocephalic, atraumatic, bilateral external ears normal, nose normal; erythema of posterior pharynx with 3+ left tonsil with exudate, 2+ right tonsil, no uvular deviation Eyes: PERRLA, EOMI, conjunctiva normal, no discharge. [] Neck: Normal range of motion, no stridor; left anterior chain tenderness to palpation. [] Cardiovascular:Heart rate regular rhythm Lungs & Thorax: Respirations even and unlabored, no retractions, no respiratory distress Skin: Warm, dry, no erythema, no rash. [] Extremities: No cyanosis, ROM intact, no edema. [] Neurologic: Alert and oriented X 3, no focal deficits noted. [] Psychologic: Affect normal, judgement normal, mood normal. [] (JAY ALBERT APRN) Current Patient Data: Labs: Laboratory Tests Test 11/13/20 19:05 11/13/20 19:37 White Blood Count 11.2 x10^3/uL (4.0-11.0) H Red Blood Count 4.03 x10^6/uL (3.50-5.40) Hemoglobin 11.2 g/dL (12.0-15.5) L Hematocrit 34.5 % (36.0-47.0) L Mean Corpuscular Volume 86 fL (79-100) Mean Corpuscular Hemoglobin 28 pg (25-35) Mean Corpuscular Hemoglobin Concent 33 g/dL (31-37) Red Cell Distribution Width 16.9 % (11.5-14.5) H Platelet Count 205 x10^3/uL (140-400) Neutrophils (%) (Auto) 78 % (31-73) H Lymphocytes (%) (Auto) 14 % (24-48) L Monocytes (%) (Auto) 7 % (0-9) Eosinophils (%) (Auto) 0 % (0-3) Basophils (%) (Auto) 0 % (0-3) Neutrophils # (Auto) 8.7 x10^3uL (1.8-7.7) H Lymphocytes # (Auto) 1.6 x10^3/uL (1.0-4.8) Monocytes # (Auto) 0.8 x10^3/uL (0.0-1.1) Eosinophils # (Auto) 0.0 x10^3/uL (0.0-0.7) Basophils # (Auto) 0.0 x10^3/uL (0.0-0.2) Sodium Level 138 mmol/L (136-145) Potassium Level 3.0 mmol/L (3.5-5.1) L Chloride Level 104 mmol/L (98-107) Carbon Dioxide Level 23 mmol/L (21-32) Anion Gap 11 (6-14) Blood Urea Nitrogen 13 mg/dL (7-20) Creatinine 1.1 mg/dL (0.6-1.0) H Estimated GFR (Cockcroft-Gault) 73.8 Glucose Level 76 mg/dL (70-99) Calcium Level 8.8 mg/dL (8.5-10.1) Heterophil Agglutinins Negative (NEGATIVE) POC Urine HCG, Qualitative hcg negative (Negative) Vital Signs: Vital Signs Date Time Temp Pulse Resp B/P (MAP) Pulse Ox O2 Delivery O2 Flow Rate FiO2 11/13/20 18:44 99.4 84 18 120/69 (86) 100 Room Air (JAY ALBERT APRN) EKG: EKG: [] (JAY ALBERT APRN) Radiology/Procedures: Radiology/Procedures: PROCEDURE: CT SOFT TISSUE NECK W/CONTRAST CT NECK SOFT TISSUE WITH IV CONTRAST History:Reason: Pain. R/o peritonsillar abscess / Spl. Instructions: / History: Technique: CT imaging was performed of the neck soft tissues with intravenous contrast. Coronal and sagittal reconstructions were performed. Exposure: One or more of the following individualized dose reduction techniques were utilized for this examination: 1. Automated exposure control 2. Adjustment of the mA and/or kV according to patient size 3. Use of iterative reconstruction technique. Comparison: None Findings: [place] tonsil enlargement. Lobulated fluid collection with peripheral enhancement in the left peritonsillar region measures 1.8 cm anterior posterior by 1.7 cm transverse by 2.5 cm craniocaudal. There is left parapharyngeal mucosal edema extending into the laryngeal structures on the left. Normal appearance of the bilateral submandibular and parotid glands. Unremarkable thyroid gland. Mildly prominent left greater than right deep cervical chain lymph nodes, likely reactive. Imaged lung apices are unremarkable. Imaged paranasal sinuses and mastoid air cells are clear. Small bilateral maxillary sinus mucous retention cyst. Mastoid air cells are clear. Impression: 1. Tonsillitis with left peritonsillar abscess and left parapharyngeal mucosal edema.[] (JAY ALBERT APRN) Heart Score: Risk Factors: Risk Factors: DM, Current or recent (<one month) smoker, HTN, HLP, family history of CAD, obesity. Risk Scores: Score 0 - 3: 2.5% MACE over next 6 weeks - Discharge Home Score 4 - 6: 20.3% MACE over next 6 weeks - Admit for Clinical Observation Score 7 - 10: 72.7% MACE over next 6 weeks - Early Invasive Strategies (JAY ALBERT APRN) Course & Med Decision Making: Course & Med Decision Making Pertinent Labs and Imaging studies reviewed. (See chart for details). 25-year-old female presents emergency department with complaints of increased sore throat and ear pain. Work-up included IV, labs, and CT soft tissue neck with contrast CBC revealed WBC of 11.2, BMP revealed K+ of 3.0 and park maintenance technician of 1.1. PT was given 1 gm of IV rocephin in the ER and 10 mg of PO decadron. prescription was written for Augmentin 875 mg tablets. Pt was provided with Dr. Keeley Flynn's information for follow up. Encouraged pt to return to the ER if symptoms worsen or fever developed. 2123- I spoke with the patient on the phone and encouraged her to drink lots of water due to the slightly elevated Creatinine, pt agreed to increase PO intake of fluids. Will also send over prescription for ibuprofen to her pharmacy as requested. [] (JAY ALBERT APRN) Kristenon Disclaimer: Antonia Disclaimer: This electronic medical record was generated, in whole or in part, using a voice recognition dictation system. (JAY ALBERT APRN) Departure Departure: Impression: Primary Impression: Peritonsillar abscess Disposition: HOME SELF CARE/HOMELESS Condition: STABLE Referrals: PCP,NO (PCP) Patient Instructions: Peritonsillar Abscess Additional Instructions: Fill the prescriptions and take as directed. Call Dr. Keeley Flynn's office at [phone] for follow up appointment on Monday. Return to the ER if symptoms worsen, you develop a fever, or have difficulty swallowing or shortness of breath. Scripts Naproxen (NAPROXEN) 500 Mg Tablet 1 TAB PO BID for pain for 10 Days, #20 TAB 0 Refills Prov: JAY ALBERT APRN 11/13/20 Amoxicillin/Potassium Clav (AUGMENTIN 875-125 TABLET) 1 Each Tablet 1 TAB PO BID for infection for 10 Days, #20 TAB 0 Refills Prov: JAY ALBERT APRN 11/13/20 Attending Signature Attending Signature I have participated in the care of this patient and I have reviewed and agree with all pertinent clinical information above including history, exam, and recommendations. (KYM HARRISON MD) JAY ALBERT APRN Nov 13, 2020 20:22 KYM HARRISON MD Nov 14, 2020 02:39
[2020-11-13] MEDS ORDERED: AMOX1TAB61 PO (20:44)
[2020-11-13] MEDS ORDERED: cefTRIAXone SODIUM 1 GM VIAL ONE (20:47)
[2020-11-13] MEDS ORDERED: LIDOCAINE 1% Multi-Dose 20 ML VIAL. ONE (20:48)
[2020-11-13] MEDS ORDERED: IV NORMAL SALINE 50ML 50 ML ONE (20:54)
[2020-11-13] MEDS ORDERED: cefTRIAXone IM 1 GM VIAL IM ONE (20:57)
[2020-11-13 21:04] VITALS: BP 109/72
[2020-11-13] MEDS ORDERED: NAPR-514 PO (21:23)
== END 2020-11-13 21:11 | disposition home or self-care (01) ==
LOC: ER 18:34
DX: J36 Peritonsillar abscess (principal); H92.02 Otalgia, left ear; F17.210 Nicotine dependence, cigarettes, uncomplicated
CPT/HCPCS: 36415; 70491; 80048; 81025; 85025; 86308; 96374; 99285; J0696; J1100; Q9967; 96365

== ENCOUNTER 2021-01-15 15:20 | Emergency (ER) | payer MEDICAID ==
[~2021-01-15] VITALS: Ht 167.6 cm; Wt 69.1 kg
[~2021-01-15 15:20] MED LIST: AMOX1TAB61 PO; NAPR-514 PO
[2021-01-15 15:50] VITALS: BP 127/61
--- NOTE | 2021-01-15 17:14 | PHYS DOC ---
Past History Past Medical History: No Pertinent History (RITU CHILDS APRN) Past Surgical History: Oophorectomy (RITU CHILDS APRN) Smoking: Cigarettes Alcohol Use: None Drug Use: Marijuana (RITU CHILDS APRN) Adult General Chief Complaint Chief Complaint: ABDOMINAL PAIN IN HPI HPI Patient is a 25-year-old female presents to the emergency department complaining of right upper quadrant pain that resolved prior to arrival to the ER. Patient states she had a cramping feeling last night and then again had a cramping feeling this morning that only lasted a very short time. Patient states that she took a test and noticed she was so she came in for evaluation to make sure everything was okay. Patient states she was last year and had a baby on September 142019. Patient states this is her second . Patient states she had no problems with her previous . Patient reports her last menstrual cycle ended on November 25 and lasted approximately 5 days normal duration of flow. Patient had noticed that she had missed her next period after October and then became concerned last night and then noticed her intermittent achy pain come and go. Patient currently denies any recent fever or chills, chest pain, abdominal pain, nausea, vomiting, or diarrhea, patient denies urinary pressure, urinary frequency, or other urinary tract infection type signs and symptoms, denies vaginal discharge, denies STI concern. Patient denies any other physical complaints or physical co ncerns. (RITU CHILDS APRN) Review of Systems Review of Systems 14 body systems of review of systems have been reviewed. See HPI for pertinent positives and negative responses, otherwise all other systems are negative, nonpertinent or noncontributory. (RITU CHILDS APRN) Allergies Allergies Allergies Coded Allergies Type Severity Reaction Last Updated Verified No Known Drug Allergies 11/13/20 No (RITU CHILDS APRN) Physical Exam Physical Exam Constitutional: Well developed, well nourished, no acute distress, non-toxic appearance. 25-year-old female in no apparent distress. HENT: Normocephalic, atraumatic, bilateral external ears normal, oropharynx moist, no oral exudates, nose normal. Oropharynx moist, no infectious process. She had a, no lymphadenopathy of the head or neck appreciated. Bilateral TMs within normal limits. Eyes: PERRLA, EOMI, conjunctiva normal, no discharge. Neck: Normal range of motion, no tenderness, supple, no stridor. No midline spinal tenderness, no nuchal rigidity, no meningismus signs appreciated. Cardiovascular:Heart rate regular rhythm, heart sounds S1-S2 with auscultation. Lungs & Thorax: Bilateral breath sounds clear to auscultation all lung kathleen, no adventitious lung sounds appreciated. Abdomen: Bowel sounds normal, soft, no tenderness, no masses, no pulsatile masses. Skin: Warm, dry, no erythema, no rash. Back: No tenderness to palpation along spinal vertebral column or adjacent muscular structures of the back. Extremities: No tenderness, no cyanosis, no clubbing, ROM intact, no edema. Distal cap refill less than 2 seconds, no swelling or edema appreciated, +2/4 pulses. Neurologic: Alert and oriented X 3, normal motor function, normal sensory function, no focal deficits noted. Psychologic: Affect normal, judgement normal, mood normal. (RITU CHILDS APRN) Current Patient Data Lab Results Laboratory Tests Test 01/15/21 16:53 POC Urine HCG, Qualitative hcg positive (Negative) (RITU CHILDS APRN) EKG EKG [] (RITU CHILDS APRN) Radiology/Procedures Radiology/Procedures [] (RITU CHILDS APRN) Heart Score C/O Chest Pain: No Risk Factors: Risk Factors: DM, Current or recent (<one month) smoker, HTN, HLP, family history of CAD, obesity. Risk Scores: Risk Factors: DM, Current or recent (<one month) smoker, HTN, HLP, family history of CAD, obesity. (RITU CHILDS APRN) Course & Med Decision Making Course & Med Decision Making Pertinent Labs and Imaging studies reviewed. (See chart for details) 25-year-old female, vital signs reviewed, presents to the emergency concerning abdominal pain with . Physical examination was unremarkable, the patient did not have any abdominal pain, patient stated her pain was right upper quadrant, discussed with patient this was likely gas pains. Patient states the pain resolved this morning shortly after waking up. Patient did states she had a short bout of the same pain last night. Discussed with patient possibility of gallbladder problems, offered lab work to study lipase level, basic labs such as CBC and CMP. Also recommended urinalysis assay to rule out urinary tract infection. Patient states she does not want any blood work, is amendable to g kayli urine for urinalysis assay. At approximately 1700, ED nurse approached me stating patient eloped from the emergency department, patient was not in room, gown was on bed, patient belongings were no longer in room. Patient considered to ED elopement. (RITU CHILDS APRN) Course & Med Decision Making I oversaw on the above date of service of this patient and discussed the care with the HEALTH INFORMATICS INSTRUCTOR. I saw patient ambulating to and from bathroom to provide urine sample for our healthcare team, she appeared in no acute distress with an unremarkable gait, nontoxic appearing. Patient eloped prior to HEALTH INFORMATICS INSTRUCTOR reevaluating patient and myself greeting and evaluating patient. I agree with the findings, plan of care, and disposition as documented. Electronically signed, Miguel Garcia DO (MIGUEL GARCIA DO) Antonia Disclaimer Dragbhavna Disclaimer This electronic medical record was generated, in whole or in part, using a voice recognition dictation system. (RITU CHILDS APRN) Departure Departure: Impression: Primary Impression: Eloped from emergency department Disposition: 07 AMA/ELOPED/LWBS Condition: LEFT WITHOUT BEING SEEN (Left prior to completion of medical work-up in ER) Referrals: SUKH SANDRA MD (PCP) RITU CHILDS APRN Jan 15, 2021 17:14 MIGUEL GARCIA DO Jan 16, 2021 06:31
[2021-01-15 17:16] LABS: BILIRUBIN,URINE NEG (NEG); CLARITY,URINE CLEAR; COLOR,URINE AMBER; GLUCOSE,URINE NEG (NEG); NITRITE,URINE NEG (NEG)
[2021-01-15 17:17] LABS: BACTERIA,URINE FEW /HPF (0-FEW); SQUAMOUS EPITHELIAL CELL,UR MANY /LPF
== END 2021-01-15 17:10 | disposition left against medical advice (07) ==
LOC: ER 15:20
DX: O26.891 Other specified pregnancy related conditions, first trimester (principal); R10.11 Right upper quadrant pain; O99.331 Smoking (tobacco) complicating pregnancy, first trimester; Z3A.00 Weeks of gestation of pregnancy not specified
CPT/HCPCS: 81001; 81025; 87086; 99283